=== PATIENT | female | born 1970 | race Caucasian/White ===

== ENCOUNTER 2018-11-02 12:26 | Emergency (ER) | payer OTHER, SELFPAY ==
[2018-11-02 12:36] VITALS: BP 153/94; PULSE 85; RESP 20; TEMP 36.7; O2SAT 97
[2018-11-02 13:26] VITALS: BP 154/92; PULSE 78; RESP 18; O2SAT 95
[2018-11-02] MEDS: diphenhydrAMINE 50 MG/ML VIAL 25 MG IVP (13:50)
[2018-11-02] MEDS: Prochlorperazine 10 MG/2 ML VIAL IVP (13:51)
[2018-11-02] MEDS: Ketorolac 30 MG/ML VIAL IVP (13:51)
[2018-11-02] MEDS: Normal Saline 1,000 ML 1000 ML IV (13:52)
--- NOTE | 2018-11-02 14:26 | ED.GENADUL_ITS ---
Discharge Plan Disposition Patient Disposition: HOME Condition: Improving Discharge Details Chief Complaint: Headache Clinical Impression: Headache, tension-type Primary Care Provider: Fide Jean Baptiste ED Provider: Francisco Lanza Home Meds and New Rx's Prescriptions: Continued multivitamin [Daily Multi-Vitamin] 1 EACH tablet 1 ea PO DAILY RF: 0 bupropion HCl 150 MG tablet extended release 12 hr 150 mg PO DAILY RF: 0 levothyroxine 100 MCG tablet 100 mcg PO DAILY RF: 0 escitalopram oxalate [Lexapro] 20 MG tablet 20 mg PO DAILY RF: 0 cinnamon bark 500 MG capsule 500 mg PO DAILY RF: 0 Discharge Instructions Instructions: Acute Headache (ED) Additional Instructions: Please continue to take Excedrin Migraine as needed for any further discomfort, stay well-hydrated, get plenty of rest. Please return to the emergency department for any new or significant worsening of symptoms such as neurological change or dysfunction, fever, or any concern. Otherwise follow-up with your primary care provider as needed for reassessment or if not continuing to improve Stand Alone Forms: Work Release Referrals: Fide Jean Baptiste [Primary Care Provider] - (As needed for reassessment) Discharge Data Discharge Date/Time-TO BE ENTERED AT DEPARTURE: 11/02/18 14:49 Medical Decision Making Patient presenting to the emergency department for chief complaint of headache. 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 She states that she has been under significant amount of stress and has anxiety about her putting in her 2-week notice for her job due to the stress burden that she is experiencing. She does state similar headaches in the past that she is classified as tension headaches but this time she began having nausea and the [id number] medication she typically takes were not helping. She describes headache as a band like a sharp pressure mainly around the frontal aspect of her head and temples. Physical exam is unremarkable for any focal neurological findings, and exam is otherwise unremarkable. 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 Plan to treat symptomatically given no worrisome findings on review of vital signs or labs. Patient given IV fluids, Benadryl, Compazine, and ketorolac Patient reassessed after medications and fluids completed and she stated significant improvement of her headache and now rates it only as a dull headache 2 out of 10. Patient was encouraged to go home and remain well-hydrated, advance diet as tolerated, get plenty of rest, and continue use of [id number] Excedrin Migraine medications. Thorough return precautions were discussed. After discussion of diagnosis and plan of care patient has no further needs, questions, or concerns and states clear understanding to return to the emergency department for any worsening symptoms. HPI General Mode of arrival: ambulatory . Date/Time Provider Initiated Documentation: 11/02/18 12:58 . Limitations to Documentation: no limitations . Information obtained by: RN notes reviewed . History of Present Illness 47 year old F presents to the emergency department with the chief complaint of headache, described as moderate and similar to prior episodes, with intensity rated at 8. Quality is described as sharp and other (pressure), and is localized to the head (frontal). Patient started experiencing this day(s) (2) and it has been constant. No relieving factors improve symptom(s), Other factors that worsen symptoms (stress and being in cold water) . Patient notes no other symptoms.. Patient did receive the following treatments prior to arrival, NSAID Related Data Home Medications Medication Instructions Recorded Confirmed bupropion HCl 150 mg PO DAILY 06/25/16 11/02/18 cinnamon bark 500 mg PO DAILY 06/25/16 11/02/18 escitalopram oxalate [Lexapro] 20 mg PO DAILY 06/25/16 11/02/18 levothyroxine 100 mcg PO DAILY 06/25/16 11/02/18 multivitamin [Daily Multi-Vitamin] 1 ea PO DAILY 06/25/16 11/02/18 Allergies Allergy/AdvReac Type Severity Reaction Status Date / Time niacin Allergy Mild Unverified 11/02/18 12:38 General Stated Complaint: Headache JAVI: 3 Review of Systems Constitutional Denies body ache(s), Denies fever(s) and Reports headache(s) Eyes Denies change in vision and Reports photophobia ENT Denies dizziness and Reports headache(s) Cardiovascular Denies chest pain and Denies syncope Gastrointestinal Denies abdominal pain, Reports nausea and Reports vomiting Neurologic Reports as per HPI, Denies dizziness, Denies syncope, Reports headache(s) and Denies sensory deficit PFS Social History Smoking/Tobacco Use Status: Never Alcohol Intake: current Alcohol Intake frequency: holidays/special occasions only Substance use type: marijuana Do you feel safe at home: Yes Do you feel safe in your relationship?: Yes Exam Const General: cooperative, healthy appearing, no acute distress and well groomed Orientation: alert, awake and oriented x3 HENMT Head: normal to inspection, signs of trauma, no scalp tenderness and no temporal artery tenderness Ears: hearing grossly normal bilaterally and TM's normal bilaterally Mouth: oral mucosae normal and moist mucous membranes Throat: posterior oropharynx normal Eyes Visual Quiroz: normal visual quiroz by confrontation Alignment and Position: alignment normal Periorbital: periorbital findings normal Eyelids: eyelids normal Sclera: sclerae normal Cornea: corneas normal Pupils: PERRL EOM: EOM intact bilaterally Neck Neck: normal visual inspection, full ROM, no lymphadenopathy and no meningeal signs Resp Effort & Inspection: normal respiratory effort and able to speak in complete sentences Auscultation: clear to auscultation bilaterally Cardio Rate: regular rate Rhythm: regular rhythm Heart Sounds: S1 normal and S2 normal Neuro General: alert, awake, oriented x3, gait normal, tone normal, moves all extremities, CN's II-XI intact bilaterally and not confused Cognition: normal cognition Speech: speech normal Motor: muscle tone normal throughout, strength 5/5 throughout, no pronator drift, no movement abnormalities noted and no fasciculations Sensory Exam: no sensory deficits noted Coordination: [id number] test normal, Romberg test normal, Does not sway with eyes open, rapid alternating movement UE normal and rapid alternating movement LE normal Course Vital Signs Temperature 36.7 C 11/02/18 12:36 Pulse 85 11/02/18 12:36 Respiratory Rate 20 11/02/18 12:36 Blood Pressure 153/94 H 11/02/18 12:36 Pulse Oximetry 97 11/02/18 12:36 Temperature 36.7 C 11/02/18 12:36 Temperature Source Temporal Artery Scan 11/02/18 12:36 Pulse 78 11/02/18 13:26 Respiratory Rate 18 11/02/18 13:26 Respiratory Effort Non-Labored 11/02/18 12:36 Blood Pressure 154/92 H 11/02/18 13:26 Blood Pressure Position Sitting 11/02/18 12:36 Pulse Oximetry 95 11/02/18 13:26 Oxygen Delivery Method Nasal Cannula 11/02/18 13:26 Oxygen Flow Rate 0 11/02/18 12:36 Pain Level 8 11/02/18 12:36
[2018-11-02 14:39] VITALS: BP 118/66; PULSE 78; RESP 16; O2SAT 98
--- NOTE | 2018-11-02 14:43 | NUR.NOTE ---
Nursing Note: pt alert/oriented. Resting in stretcher, no signs of distress. Facial expression and body language relaxed. Pt states that her headache is much better
== END 2018-11-02 14:49 | disposition home or self-care (01) ==
PROVIDERS: Emergency Provider Nurse Practitioner Family; PCP Internal Medicine
DX: G44.209 Tension-type headache, unspecified, not intractable (principal); F41.9 Anxiety disorder, unspecified
CPT/HCPCS: 96361; 96374; 96375; 99284; J0780; J1200; J1885